=== PATIENT | male | born 1935 | race Caucasian/White ===

== ENCOUNTER → 2016-08-23 | Outpatient (CLI) | payer OTHER ==
[~2016-08-23] MED LIST: GADOBUTROL 10 ML VIAL IVP ONE
[2016-08-23 10:59] LABS: CREATININE 1.2 mg/dL (0.7-1.3)
== END ==
LOC: FIMAGING 09:23
PROVIDERS: ATTEND Internal Medicine
DX: G31.9 Degenerative disease of nervous system, unspecified (principal)
CPT/HCPCS: 70553; A9585

== ENCOUNTER → 2016-09-19 | Outpatient (CLI) | payer OTHER | LOC: BHFA 13:00 | PROVIDERS: ATTEND Internal Medicine | DX: I73.9 Peripheral vascular disease, unspecified (principal) ==

== ENCOUNTER 2016-09-22 06:58 | Observation (INO) | payer OTHER ==
--- NOTE | 2016-09-21 15:46 | GHP ---
[f rep st] PREOP HISTORY AND PHYSICAL DATE OF ADMISSION: 09/22/2016 ADMISSION DIAGNOSIS: Urgency with urinary incontinence and obstruction. HISTORY OF PRESENT ILLNESS: At the present time, he is admitted for a TURP. He had an AUA score up to 26. He has had urodynamics and noted with detrusor instability and obstruction cystoscopy revea led obstruction and we recommended he undergo a TURP. Indications and complications of postoperativ e urge incontinent were discussed. He appears to be well informed and agrees to undergo the above p rocedure. PAST MEDICAL HISTORY: BPH with obstruction, erectile dysfunction, nocturia, and urge incontinence. PAST SURGICAL HISTORY: Melanoma. Pacemaker. MEDICATIONS: Benazepril, levothyroxine. ALLERGIES: None. FAMILY HISTORY: Positive for prostate cancer, hypertension, and heart disease. SOCIAL HISTORY: Moderate alcohol consumption. A nonsmoker. REVIEW OF SYSTEMS: CARDIAC: Negative, other than the pacemaker, but he denies chest pain, shortnes s of breath. ABDOMEN: Normal. No organomegaly, rebound or guarding. HEMATOLOGIC: He does admit to easy bruising, but denies easy bleeding. IMMUNOLOGIC: He denies any hematologic issues. PHYSICAL EXAM: VITAL SIGNS: Stable. CHEST: Clear. HEART: Regular rate and rhythm. ABDOMEN: N ormal. No organomegaly, rebound, or guarding. EXTREMITIES: Lower extremities are normal. ASSESSMENT AND PLAN: At the present time, he is admitted for the transurethral resection of prostat e. Indications, complications, and expectations discussed, and a written and verbal consent was the n obtained. /[id number]/MODL
--- NOTE | 2016-09-22 06:48 | PDHPUP ---
History & Physical Update H&P update statement: This history and physical update is based on an assessment of the patient which was completed after admission or registration (within 24 hours), but prior to the surgery/procedure. H&P update: H&P reviewed & patient examined, no change in patient's condition since H&P completed
[~2016-09-22 06:58] MED LIST changes: -GADOBUTROL 10 ML VIAL IVP ONE; +ceFAZolin 2 GM/DEXTROSE 100 ML IV ONE
[2016-09-22] MEDS ORDERED: LR 1,000 ML IV ONE (07:33)
[2016-09-22] MEDS ORDERED: LIDOCAINE 2% JELLY 20 ML (UROJECT) ONE (08:31)
--- NOTE | 2016-09-22 08:39 | PDANEPAE ---
ANE History of Present Illness PRESENTS FOR TURP ANE Past Medical History - Cardiovascular History Hx Hypertension: No Hx Arrhythmias: Yes Hx Chest Pain: No Hx Coronary Artery / Peripheral Vascular Disease: Yes Hx CHF / Valvular Disease: No Hx Palpitations: No Cardiovascular History Comment: pacemaker - Pulmonary History Hx COPD: No Hx Asthma/Reactive Airway Disease: No Hx Recent Upper Respiratory Infection: No Hx Oxygen in Use at Home: No Hx Sleep Apnea: Yes Sleep Apnea Screening Result - Last Documented: Positive - Neurologic History Hx Cerebrovascular Accident: No Hx Seizures: No Hx Dementia: No - Endocrine History Hx Diabetes: No Endocrine History Comment: hypothyroid - Renal History Hx Renal Disorders: Yes Renal History Comment: urinary frequency, retention - Liver History Hx Hepatic Disorders: No - Neurological & Psychiatric Hx Hx Neurological and Psychiatric Disorders: Yes Neurological / Psychiatric History Comment: "back always hurts" in a.m. until pt stretches. - Cancer History Hx Cancer: Yes Cancer History Comment: skin - Congenital Disorder History Hx Congenital Disorders: No - GI History Hx Gastrointestinal Disorders: No - Other Health History Other Health History: "worts L hand"- wants to try dietary supplement. - Chronic Pain History Chronic Pain: No - Surgical History Prior Surgeries: cysto 2009. 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 Patient History - Allergies Allergies/Adverse Reactions: No Known Allergies Allergy (Verified 09/21/16 10:51) - Home Medications Home Medications: Aspirin [Aspirin 81mg (*)] 81 mg PO DAILY 04/15/15 [Last Taken 08/24/16] Levothyroxine [Synthroid 112 mcg (*)] 112 mcg PO DAILY@0300 09/01/16 [Last Taken 09/22/16 03:00] Melatonin [Melatonin 5 mg] 5 mg PO HS PRN 09/01/16 [Last Taken 09/08/16 23:00] Travoprost Z 0.004% [Travatan Z 0.004% (*)] 1 drops LEFTEYE HS 09/01/16 [Last Taken 09/21/16 23:00] - NPO status NPO Since - Liquids (Date): 09/22/16 NPO Since - Liquids (Time): 06:00 NPO Since - Solids (Date): 09/21/16 NPO Since - Solids (Time): 23:00 - Anes Hx Anes Hx: no prior problems - Smoking Hx Smoking Status: Never smoked ANE Labs/Vital Signs - Vital Signs Blood Pressure: 131/87 Heart Rate: 82 Respiratory Rate: 15 O2 Sat (%): 96 Height: 172.72 cm Weight: 77.111 kg ANE Physical Exam - Airway Neck exam: FROM Mallampati Score: Class 1 Mouth exam: normal dental/mouth exam - Pulmonary Pulmonary: no respiratory distress - Cardiovascular Cardiovascular: regular rate and rhythym - ASA Status ASA Status: III ANE Anesthesia Plan Anesthesia Plan: general endotracheal anesthesia
[2016-09-22] MEDS ORDERED: MIDAZOLAM 2 MG/2 ML VIAL IVP ONE (08:42)
[2016-09-22] MEDS ORDERED: PROPOFOL 200 MG/20 ML VIAL ONE (08:50)
[2016-09-22] MEDS ORDERED: fentaNYL 100 MCG/2 ML INJ ONE ×2 (08:50→09:39)
[2016-09-22] MEDS ORDERED: DEXAMETHASONE 4 MG/ML VIAL ONE (09:21)
[2016-09-22] MEDS ORDERED: PROMETHAZINE HCL 25 MG/ML INJ IVP PRN (09:56)
[2016-09-22] MEDS ORDERED: HYDROmorphONE/DILAUDID 1 MG/ML SYR IVP PRN (09:56)
[2016-09-22] MEDS ORDERED: OXYCODONE/APAP 5/325 TAB PO PRN (09:56)
[2016-09-22] MEDS ORDERED: NALOXONE HCL 0.4 MG/ML INJ IVP PRN (09:56)
[2016-09-22] MEDS ORDERED: ONDANSETRON 4 MG/2 ML VIAL IVP PRN ×2 (09:56→14:46)
[2016-09-22] MEDS ORDERED: fentaNYL 100 MCG/2 ML INJ IVP PRN (09:56)
--- NOTE | 2016-09-22 10:14 | GOP ---
[f rep st] OPERATIVE REPORT DATE OF OPERATION: 09/22/2016 SURGEON: Danny Guthrie MD RACING MECHANIC: None. PREOPERATIVE DIAGNOSIS: Benign prostatic hypertrophy, urinary obstruction, hyperactive bladder with urge/frequency syndrome. POSTOPERATIVE DIAGNOSIS: Benign prostatic hypertrophy, urinary obstruction, hyperactive bladder wit h urge/frequency syndrome. PROCEDURE PERFORMED: Transurethral excision of the prostate. FINDINGS: DESCRIPTION OF PROCEDURE: After appropriate time-out and general anesthesia, was prepped and draped in the normal sterile fashion in the dorsal lithotomy position. TUR was begun, taking down the int ravesical lobe, the right lateral lobe, and the right portion of the posterior lobe. Left lateral l obe was handled in the same fashion. I really did more of a posterior channel TURP and left the lat eral anterior tissue in place because of his urgency and urge incontinence, trying not to exacerbate that. We did discuss this preoperatively. He was well informed that he does have the dysfunctiona l bladder. At the end of the procedure, bladder was Ellik'd free of all chips and clots. Visualiza tion revealed no residual chips or clots. The ureteral orifices were preserved. External sphincter approximated at the midline symmetrically. 22 three-way catheter passed, Mandarin guide placed, an d the balloon inflated, and irrigated clear. Specimen sent to pathology. He will be admitted for p ostoperative care. /[id number]/MODL
--- NOTE | 2016-09-22 10:16 | POSTANESTH ---
Post Anesthetic Evaluation Cardiovascular Status: Normal, Stable Respiratory Status: Normal, Stable Level of Consciousness/Mental Status: Can Participate in Eval Pain Control: Adequate, Prn Tx Ordered Nausea/Vomiting Control: Adequate, Prn Tx Ordered Complications Possibly Related to Anesthesia: None Noted
[2016-09-22 12:16] VITALS: RESP 16
[2016-09-22] MEDS ORDERED: OPIUM/BELLADONNA ALKALO SUPP PR PRN (14:46)
[2016-09-22] MEDS ORDERED: ONDANSETRON DISINTEGRATING 4 MG TAB PO PRN (14:46)
[2016-09-22] MEDS ORDERED: ACETAMINOPHEN 325 MG TAB PO PRN (14:46)
[2016-09-22] MEDS ORDERED: HYDROCODONE/APAP 5/325 TAB PO PRN (14:46)
[2016-09-22] MEDS ORDERED: NON-FORMULARY NEW DRUG (Melatonin [Melatonin 5 Mg] 5 MG) PO PRN (14:49)
[2016-09-22] MEDS ORDERED: D5W LR 1,000 ML IV SCH (15:00)
[2016-09-22] MEDS ORDERED: MELATONIN 3 MG TAB PO PRN (15:08)
[2016-09-22] MEDS ORDERED: TRAVOPROST Z 0.004% 2.5 ML OPHT.BTL LEFTEYE SCH (21:00)
[2016-09-23] MEDS ORDERED: LEVOTHYROXINE 112 MCG TAB PO SCH (03:00)
[2016-09-23 07:17] VITALS: BP 120/70; PULSE 77; TEMP 97.7; O2SAT 94
[2016-09-23] MEDS ORDERED: ASPIRIN 81 MG CHEWABLE TAB PO SCH (09:00)
== END 2016-09-23 12:03 | disposition home or self-care (01) ==
LOC: INTOOBSV 06:58 → F1N 06:58
PROVIDERS: ADMIT Specialist; ATTEND Specialist
PROC: 0VT08ZZ Resection of Prostate, Via Natural or Artificial Opening Endoscopic (ICD-10-PCS; principal; 2016-09-22 08:30)
DX: N40.1 Benign prostatic hyperplasia with lower urinary tract symptoms (principal); R33.9 Retention of urine, unspecified; R32 Unspecified urinary incontinence; Z95.5 Presence of coronary angioplasty implant and graft; Z85.820 Personal history of malignant melanoma of skin
CPT/HCPCS: 52601; 88307; J0690; J1100; J2250; J2405; J2704; J3010

== ENCOUNTER 2016-09-25 13:53 | Emergency (ER) | payer OTHER ==
[2016-09-25] MEDS ORDERED: ONDANSETRON 4 MG/2 ML VIAL IVP ONE (14:21)
--- NOTE | 2016-09-25 14:21 | EDPHY ---
HPI/HX/ROS/PE/MDM Narrative: CHIEF COMPLAINT: Nausea, abdominal pain. HISTORY OF PRESENT ILLNESS: This patient is an 81 year old male arriving with his complaining of nausea and right sided abdominal pain onset earlier today. He reports he had a TURP done 09/19/[address] Guthrie, one week ago. He states he has been generally feeling well following the procedure. Today, a few hours after breakfast, he states he had a sudden urge to have a bowel movement with associated nausea. He states he subsequently induced three episodes of vomiting to relieve his nausea. He endorses hematuria and urinary frequency, but denies clotting or sensations of urinary retention. He states his bowel movements have been small and soft since before his TURP. He states he is not currently taking antibiotics. No fever, chills, chest pain, shortness of breath, palpitations, vomiting, diarrhea, headache, lightheadedness. REVIEW OF SYSTEMS: Aside from elements discussed in the HPI, a comprehensive 10-point review of systems was reviewed and is negative. PAST MEDICAL HISTORY: Hypothyroid (Levothyroxine), atrial fibrillation ( pacemaker), appendectomy. SOCIAL HISTORY: . at bedside. Urologist Dr. [place] Guthrie PHYSICAL EXAM: VITAL SIGNS: Reviewed by me GENERAL: Pleasant, elderly, resting comfortably in no respiratory distress. HEENT: Atraumatic. Eyes: No icterus, no injection. Mouth: moist mucous membranes. No erythema or lesions. Neck: supple with no adenopathy. LUNGS: Clear to auscultation bilaterally, no wheezes, rhonchi or rales. CARDIAC: Regular rate and rhythm, no rubs, murmurs or gallops. ABDOMEN: RLQ tenderness. Hyperactive bowel sounds. Soft, nondistended. No guarding or rebound. BACK: No flank pain. No CVA tenderness. EXTREMITIES: Trace lower leg edema bilaterally. No trauma. Range of motion is normal throughout. NEURO: Alert and oriented, grossly nonfocal. SKIN: Warm and dry, no rash. PSYCHIATRIC: Normal mentation, no agitation. Portions of this note were transcribed by a paramedical aide. I personally performed a history, physical exam, medical decision making, and confirmed accuracy of information the transcribed note. ED Course: This patient is an 81 year old male post op day 6 from TURP presenting with nausea and abdominal pain. Physical exam reveals right lower quadrant tenderness and hyperactive bowel sounds. No flank pain. The patient is afebrile. Plan for labs including CBC, liver/lipase, UA. Plan for bladder scan following void and for CT abdomen and pelvis to assess for acute processes. Administered 4mg IV Zofran for relief of nausea. Labs unremarkable. CT pending. 16:[address] Brid, radiologist. CT shows mild constipation, as well as significant dilatation of the right collecting system with hydroureter and hydronephrosis. Patient does have a kidney stone in the right ureter, distally , but does not appear to be obstructing source. There is also a nodular structure, questionable soft tissue swelling, near the ureter which may be the source of obstruction. Spoke with Dr. Foss, urologist, on-call for Dr. Guthrie. Plans start the patient on Keflex for slightly infected looking urine, and follow-up tomorrow Patient will be discharged home in good condition with prescription for Keflex and instruction to follow up with Dr. Guthrie tomorrow. Return precautions discussed. The patient is comfortable with this plan. MDM: Differential diagnoses for the patient's symptom complex was considered including but not limited to appendicitis, bowel obstruction, constipation, kidney stone, abscess. - Data Points Imaging Results: Imaging Impressions Abdomen CT 09/25/16 14:21 Impression: 1. Mild dilatation of the distal right ureter containing a nonobstructive dependent 7 mm calculus near the ureterovesical junction. Query stenosis at the ureterovesical junction versus reflux uropathy. 2. Constipation. No obstruction or adynamic ileus. 3. No free fluid, abscess, or localized inflammatory process. Findings discussed with emergency department physician, Mary Mason MD on September 25, 2016 at 4:03 p.m. Imaging: Discussed imaging studies w/ home sales consultant Radiologist Laboratory Results: Laboratory Results 09/25/16 14:40 09/25/16 14:40 09/25/16 09/25/16 09/25/16 14:40 14:40 14:30 WBC 10.37 10^3/uL H 10^3/uL (3.80-9.50) RBC 3.82 10^6/uL L 10^6/uL (4.40-6.38) Hgb 12.8 g/dL L g/dL (13.7-17.5) Hct 38.2 % L % (40.0-51.0) MCV 100.0 fL H fL (81.5-99.8) MCH 33.5 pg pg (27.9-34.1) MCHC 33.5 g/dL g/dL (32.4-36.7) RDW 13.9 % % (11.5-15.2) Plt Count 161 10^3/uL 10^3/uL (150-400) MPV 12.0 fL H fL (8.7-11.7) Neut % (Auto) 80.1 % H % (39.3-74.2) Lymph % (Auto) 9.6 % L % (15.0-45.0) [place] % (Auto) 7.5 % % (4.5-13.0) Eos % (Auto) 1.4 % % (0.6-7.6) Baso % (Auto) 0.5 % % (0.3-1.7) Nucleat RBC Rel Count 0.0 % % (0.0-0.2) Absolute Neuts (auto) 8.31 10^3/uL H 10^3/uL (1.70-6.50) Absolute Lymphs (auto) 1.00 10^3/uL 10^3/uL (1.00-3.00) Absolute Monos (auto) 0.78 10^3/uL 10^3/uL (0.30-0.80) Absolute Eos (auto) 0.14 10^3/uL 10^3/uL (0.03-0.40) Absolute Basos (auto) 0.05 10^3/uL 10^3/uL (0.02-0.10) Absolute Nucleated RBC 0.00 10^3/uL 10^3/uL (0-0.01) Immature Gran % 0.9 % % (0.0-1.1) Immature Gran # 0.09 10^3/uL 10^3/uL (0.00-0.10) Sodium 138 mEq/L mEq/L (134-144) Potassium 4.2 mEq/L mEq/L (3.5-5.2) Chloride 102 mEq/L mEq/L (97-110) Carbon Dioxide 25 mEq/l mEq/l (22-31) Anion Gap 11 mEq/L mEq/L (8-16) BUN 27 mg/dL H mg/dL (7-23) Creatinine 1.2 mg/dL mg/dL (0.7-1.3) Estimated GFR 58 Glucose 106 mg/dL H mg/dL (70-100) Calcium 10.4 mg/dL mg/dL (8.5-10.4) Total Bilirubin 0.9 mg/dL mg/dL (0.1-1.4) Conjugated Bilirubin 0.4 mg/dL mg/dL (0.0-0.5) Unconjugated Bilirubin 0.5 mg/dL mg/dL (0.0-1.1) AST 30 IU/L IU/L (17-59) ALT 43 IU/L IU/L (21-72) Alkaline Phosphatase 43 IU/L IU/L (38-126) Total Protein 6.9 g/dL g/dL (6.3-8.2) Albumin 4.2 g/dL g/dL (3.5-5.0) Lipase 63.0 IU/L IU/L (23-300) Urine Color YELLOW Urine Appearance HAZY Urine pH 6.0 (5.0-7.5) Ur Specific [place] 1.012 (1.002-1.030) Urine Protein 2+ H (NEGATIVE) Urine Ketones NEGATIVE (NEGATIVE) Urine Blood 3+ H (NEGATIVE) Urine Nitrate NEGATIVE (NEGATIVE) Urine Bilirubin NEGATIVE (NEGATIVE) Urine Urobilinogen NEGATIVE EU EU (0.2-1.0) Ur Leukocyte Esterase 1+ H (NEGATIVE) Urine RBC 50-182 /hpf H /hpf (0-3) Urine WBC 25-50 /hpf H /hpf (0-3) Ur Epithelial Cells NONE SEEN /lpf /lpf (NONE-1+) Urine Bacteria TRACE /hpf H /hpf (NONE SEEN) Urine Mucus TRACE /lpf /lpf (NONE-1+) Urine Glucose NEGATIVE (NEGATIVE) Medications Given: Discontinued Medications Cephalexin HCl (Keflex) 500 mg PO EDNOW ONE PRN Reason: Protocol Stop: 09/25/16 16:26 Last Admin: 09/25/16 16:40 Dose: 500 mg Sodium Chloride (Ns) 500 mls @ 1,000 mls/hr IV ONCE ONE PRN Reason: Protocol Stop: 09/25/16 15:20 Last Admin: 09/25/16 15:00 Dose: 500 mls Ondansetron HCl (Zofran) 4 mg IVP EDNOW ONE Stop: 09/25/16 14:22 Last Admin: 09/25/16 14:45 Dose: 4 mg General Time Seen by Provider: 09/25/16 14:05 Initial Vital Signs: Initial Vital Signs Temperature (C) 36.9 C 09/25/16 13:53 Heart Rate 83 09/25/16 13:53 Respiratory Rate 18 09/25/16 13:53 Blood Pressure 168/94 H 09/25/16 13:53 O2 Sat (%) 95 09/25/16 13:53 O2 Delivery Mode Room Air Allergies/Adverse Reactions: No Known Allergies Allergy (Verified 09/21/16 10:51) Home Medications: Medication Instructions Recorded Aspirin [Aspirin 81mg (*)] 81 mg PO DAILY 04/15/15 Levothyroxine [Synthroid 112 mcg 112 mcg PO DAILY@0300 09/01/16 (*)] Melatonin [Melatonin 5 mg] 5 mg PO HS PRN 09/01/16 Travoprost Z 0.004% [Travatan Z 1 drops LEFTEYE HS 09/01/16 0.004% (*)] Cephalexin [Keflex (RX)] 500 mg PO TID 7 Days 09/25/16 Departure - Departure Disposition: Home, Routine, Self-Care Clinical Impression: Vomiting alone Qualifiers: Vomiting type: unspecified Vomiting Intractability: non-intractable Qualified Code(s): R11.11 - Vomiting without nausea Constipation Qualifiers: Constipation type: unspecified constipation type Qualified Code(s): K59.00 - Constipation, unspecified Abdominal pain Qualifiers: Abdominal location: right lower quadrant Qualified Code(s): R10.31 - Right lower quadrant pain Hydronephrosis Qualifiers: Hydronephrosis type: unspecified Qualified Code(s): N13.30 - Unspecified hydronephrosis Condition: Good Instructions: Constipation (ED), Acute Nausea and Vomiting (ED), Abdominal Pain (ED), Hydronephrosis (ED) Additional Instructions: You do have some signs of constipation on your CT scan and we would like to encourage you to drink plenty of fluid. You been given antibiotics to cover for any possible urinary tract infection. Please take this as directed. Keflex 500 mg by mouth 3 times a day. Please follow up tomorrow with Dr. Guthire, at least by phone. Referrals: Ephraim Tatum MD [Primary Care Provider] - As per Instructions Danny Guthrie MD [Medical Doctor] - As per Instructions Prescriptions: Cephalexin [Keflex (RX)] 500 mg PO TID 7 Days Report Scribed for: Mary Mason Report Scribed by: Rosita Luther Date of Report: 09/25/16 Time of Report: 14:09
--- NOTE | 2016-09-25 14:25 | CPEKG ---
Heart Rate: 81 RR Interval: 741 P-R Interval: 170 QRSD Interval: 176 QT Interval: 440 QTC Interval: 511 P [place]: 0 QRS [place]: -74 T Wave [place]: 98 EKG Severity - ABNORMAL ECG - EKG Impression: VENTRICULAR-PACED COMPLEXES EKG Impression: NONSPECIFIC IVCD WITH LAD EKG Impression: LVH WITH SECONDARY REPOLARIZATION ABNORMALITY Electronically Signed By: Mary Mason 25-Sep-2016 21:28:06
[2016-09-25] MEDS ORDERED: NS 500 ML IV ONE (14:51)
[2016-09-25 15:03] LABS: % IMMATURE GRANULYOCYTES 0.9 % (0.0-1.1); ABSOLUTE IMMATURE GRANULOCYTES 0.09 10^3/uL (0.00-0.10); ADD DIFF? NO; ADD MORPH? NO; ADD SCAN? NO; ATYPICAL LYMPHOCYTE FLAG 0 (0-99); FRAGMENT RBC FLAG 0 (0-99); HEMATOCRIT 38.2 % (40.0-51.0); HEMOGLOBIN 12.8 g/dL (13.7-17.5); LEFT SHIFT FLG 20 (0-99); LIPEMIA HEMOLYSIS FLAG 80 (0-99); MEAN CELL HEMOGLOBIN 33.5 pg (27.9-34.1); MEAN CELL HEMOGLOBIN CONCENTR. 33.5 g/dL (32.4-36.7); PLATELET CLUMPS FLAG 0 (0-99); PLATELET COUNT 161 10^3/uL (150-400); RED BLOOD CELL COUNT 3.82 10^6/uL (4.40-6.38); RED CELL DISTRIBUTION WIDTH 13.9 % (11.5-15.2)
[2016-09-25] MEDS ORDERED: IOPAMIDOL (ISOVUE-300) 100 ML BTL ONE (15:07)
[2016-09-25 15:08] LABS: ALANINE AMINOTRANSFERASE 43 IU/L (21-72); ALBUMIN 4.2 g/dL (3.5-5.0); ALKALINE PHOSPHATASE 43 IU/L (38-126); ANION GAP 11 mEq/L (8-16); ASPARTATE AMINOTRANSFERASE 30 IU/L (17-59); BILIRUBIN,TOTAL 0.9 mg/dL (0.1-1.4); BILIRUBIN-CONJUGATED 0.4 mg/dL (0.0-0.5); BILIRUBIN-UNCONJUGATED 0.5 mg/dL (0.0-1.1); CALCIUM 10.4 mg/dL (8.5-10.4); CARBON DIOXIDE 25 mEq/l (22-31); CHLORIDE 102 mEq/L (97-110); CREATININE 1.2 mg/dL (0.7-1.3); GLOMERULAR FILTRATION RATE 58; GLUCOSE 106 mg/dL (70-100); POTASSIUM 4.2 mEq/L (3.5-5.2); SODIUM 138 mEq/L (134-144); TOTAL PROTEIN 6.9 g/dL (6.3-8.2)
[2016-09-25 15:09] LABS: COLOR YELLOW; LEUKOCYTE ESTERASE,URINE 1+ (NEGATIVE); NITRITE,URINE NEGATIVE (NEGATIVE)
[2016-09-25 15:18] LABS: BACTERIA TRACE /hpf (NONE SEEN); MUCUS TRACE /lpf (NONE-1+); RBC,URINE 50-182 /hpf (0-3); WBC,URINE 25-50 /hpf (0-3)
[2016-09-25] MEDS ORDERED: CEPHALEXIN 500 MG CAP PO ONE (16:25)
[2016-09-25 16:56] VITALS: BP 143/79; PULSE 84; RESP 20; TEMP 98.1; O2SAT 98
== END 2016-09-25 16:55 | disposition home or self-care (01) ==
DX: N13.30 Unspecified hydronephrosis (principal); K59.00 Constipation, unspecified; E86.9 Volume depletion, unspecified; Z79.82 Long term (current) use of aspirin; Z95.0 Presence of cardiac pacemaker
CPT/HCPCS: 74177; 93005; 96374; 99285; J2405; Q9967

== ENCOUNTER 2016-10-06 05:52 | Day surgery (SDC) | payer OTHER ==
--- NOTE | 2016-10-05 15:14 | GHP ---
[f rep st] PREOP HISTORY AND PHYSICAL ADMISSION DIAGNOSIS: Right ureteral calculus. HISTORY OF PRESENT ILLNESS: This is a gentleman, who has had a recent TUR of the prostate and then he developed right flank pain. The CAT scan revealed a right 7 mm distal ureteral calculus with hydronephrosis and dilated ureter. He was admitted for ureteroscopy and removal of the stone. PAST SURGICAL HISTORY: TURP, pacemaker, and melanoma excision. PAST MEDICAL HISTORY: Urge incontinence, nocturia, erectile dysfunction, BPH treated with a TURP. MEDICATIONS: Donepezil and levothyroxine. ALLERGIES: None. FAMILY HISTORY: Prostate cancer, hypertension, heart disease. SOCIAL HISTORY: Mild alcohol consumption and nonsmoker. REVIEW OF SYSTEMS: Negative cardiac, respiratory, GI, endocrine. PHYSICAL EXAMINATION: VITAL SIGNS: Stable. CHEST: Clear. HEART: Regular rate and rhythm. ABDOMEN: Normal. No organomegaly, rebound, or guarding. EXTREMITIES: Lower extremities normal. PLAN: He is presently admitted for a right ureteroscopy. Copy requested to: Dr. Tatum /[id number]/MODL MTDD
[2016-10-06] MEDS ORDERED: LIDOCAINE 1% 2 ML INJ ONE (06:10)
[2016-10-06] MEDS ORDERED: LR 1,000 ML IV ONE (06:17)
[2016-10-06] MEDS ORDERED: LIDOCAINE 1% 2 ML INJ ID PRN (06:17)
--- NOTE | 2016-10-06 06:52 | PDANEPAE ---
ANE History of Present Illness ureterolithiasis ANE Past Medical History - Cardiovascular History Hx Hypertension: No Hx Arrhythmias: Yes Hx Chest Pain: No Hx Coronary Artery / Peripheral Vascular Disease: Yes Hx CHF / Valvular Disease: No Hx Palpitations: No Cardiovascular History Comment: pacemaker - Pulmonary History Hx COPD: No Hx Asthma/Reactive Airway Disease: No Hx Recent Upper Respiratory Infection: No Hx Oxygen in Use at Home: No Hx Sleep Apnea: Yes Sleep Apnea Screening Result - Last Documented: Positive - Neurologic History Hx Cerebrovascular Accident: No Hx Seizures: No Hx Dementia: No Neurologic History Comment: PT STATED "I HAVE LOUSY MEMORY. IT COULD BE DEMENTIA BUT THEY HAVEN'T DETERMINED THAT. I'M GETTING A NEW DOCTOR." - Endocrine History Hx Diabetes: No Hypothyroid: Yes Hyperthyroid: No Obesity: no Endocrine History Comment: hypothyroid - Renal History Hx Renal Disorders: Yes Renal History Comment: urinary frequency, retention, ureterolithiasis - Liver History Hx Hepatic Disorders: No - Neurological & Psychiatric Hx Hx Neurological and Psychiatric Disorders: Yes Neurological / Psychiatric History Comment: "back always hurts" in a.m. until pt stretches. - Cancer History Hx Cancer: Yes Cancer History Comment: skin. MELENOMA - Congenital Disorder History Hx Congenital Disorders: No - GI History GERD: no Hx Gastrointestinal Disorders: No - Other Health History Other Health History: "worts L hand"- wants to try dietary supplement. - Chronic Pain History Chronic Pain: No - Surgical History Prior Surgeries: cysto 2009. 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 Pacemaker Last Checked: 08/10 ANE Patient History - Allergies Allergies/Adverse Reactions: No Known Allergies Allergy (Verified 09/21/16 10:51) - Home Medications Home Medications: Aspirin [Aspirin 81mg (*)] 81 mg PO DAILY 04/15/15 [Last Taken 10/04/16] Levothyroxine [Synthroid 112 mcg (*)] 112 mcg PO DAILY@0300 09/01/16 [Last Taken 10/06/16] Melatonin [Melatonin 5 mg] 5 mg PO HS PRN 09/01/16 [Last Taken 09/21/16] Travoprost Z 0.004% [Travatan Z 0.004% (*)] 1 drops LEFTEYE HS 09/01/16 [Last Taken 10/05/16] Vitamin B12 10/04/16 [Last Taken 10/04/16] - NPO status NPO Since - Liquids (Date): 10/05/16 NPO Since - Liquids (Time): 22:00 NPO Since - Solids (Date): 10/05/16 NPO Since - Solids (Time): 20:00 - Anes Hx Anes Hx: no prior problems - Smoking Hx Smoking Status: Never smoked - Family Anes Hx Family Anes Hx: none Family Hx Anesthesia Complications: N/a ANE Labs/Vital Signs - Vital Signs Blood Pressure: 125/77 Heart Rate: 75 Respiratory Rate: 18 O2 Sat (%): 97 Height: 172.72 cm Weight: 79.379 kg ANE Physical Exam - Airway Neck exam: FROM Mallampati Score: Class 1 Mouth exam: normal dental/mouth exam - Pulmonary Pulmonary: no respiratory distress, no rales or rhonchi, clear to auscultation - Cardiovascular Cardiovascular: regular rate and rhythym - ASA Status ASA Status: II ANE Anesthesia Plan Anesthesia Plan: GA w LMA
[2016-10-06] MEDS ORDERED: LIDOCAINE 2% JELLY 20 ML (UROJECT) ONE (07:05)
[2016-10-06] MEDS ORDERED: IOTHALAMATE MEG (CONRAY) 50 ML VIAL IV ONE (07:09)
[2016-10-06] MEDS ORDERED: fentaNYL 100 MCG/2 ML INJ ONE ×2 (07:09)
[2016-10-06] MEDS ORDERED: PROPOFOL 200 MG/20 ML VIAL ONE (07:09)
[2016-10-06] MEDS ORDERED: IOPAMIDOL (ISOVUE-M 300) 15 ML VIAL ONE (07:10)
[2016-10-06] MEDS ORDERED: LIDOCAINE 2% 5 ML SDV ONE (07:10)
[2016-10-06] MEDS ORDERED: KETOROLAC 30 MG/1 ML SDV ONE (07:12)
[2016-10-06] MEDS ORDERED: DEXAMETHASONE 4 MG/ML VIAL ONE (07:12)
[2016-10-06] MEDS ORDERED: ONDANSETRON 4 MG/2 ML VIAL ONE (07:12)
[2016-10-06] MEDS ORDERED: ceFAZolin 2 GM/DEXTROSE 100 ML IV ONE (07:20)
[2016-10-06] MEDS ORDERED: LR 500 ML IV PRN (08:02)
[2016-10-06] MEDS ORDERED: OXYCODONE/APAP 5/325 TAB PO PRN (08:02)
[2016-10-06] MEDS ORDERED: fentaNYL 100 MCG/2 ML INJ IVP PRN (08:02)
[2016-10-06] MEDS ORDERED: HYDROCODONE/APAP 5/325 TAB PO PRN (08:02)
[2016-10-06] MEDS ORDERED: NALOXONE HCL 0.4 MG/ML INJ IVP PRN (08:02)
[2016-10-06] MEDS ORDERED: PROMETHAZINE HCL 25 MG/ML INJ IVP PRN (08:02)
[2016-10-06] MEDS ORDERED: ACETAMINOPHEN 500 MG TAB PO PRN (08:02)
[2016-10-06] MEDS ORDERED: ONDANSETRON 4 MG/2 ML VIAL IVP PRN (08:02)
--- NOTE | 2016-10-06 08:36 | POSTOPPROG ---
Post Op Note Date of Operation: 10/06/16 Surgeon: Danny Guthrie Fraud Representative: ruperto Anesthesiologist: ruperto Anesthesia: LMA Pre-op Diagnosis: rt stone Post-op Diagnosis: same Indication: same Procedure: ureteroscopy / stent----dictated Findings: stone Inf/Abcess present in the surg proc area at time of surgery?: No EBL: Minimal Complications: none Drains: Other (stent, michael)
--- NOTE | 2016-10-06 10:31 | POSTANESTH ---
Post Anesthetic Evaluation Cardiovascular Status: Normal, Stable, Similar to Pre-Op Cond, Other, See Comment (paced rhythm) Respiratory Status: Normal, Stable Level of Consciousness/Mental Status: Can Participate in Eval Pain Control: Adequate, Prn Tx Ordered Nausea/Vomiting Control: Adequate, Prn Tx Ordered Complications Possibly Related to Anesthesia: None Noted
[2016-10-06 13:47] VITALS: RESP 16; O2SAT 96
[2016-10-06 13:55] VITALS: BP 142/86; PULSE 74; TEMP 97.7
--- NOTE | 2016-10-06 17:02 | GOP ---
[f rep st] OPERATIVE REPORT DATE OF OPERATION: 10/06/2016 SURGEON: Danny Guthrie MD ANESTHESIA: General. ANESTHESIOLOGIST: Arden Randle DO PREOPERATIVE DIAGNOSIS: Right ureteral calculus with obstruction. POSTOPERATIVE DIAGNOSIS: Right ureteral calculus with obstruction. PROCEDURE PERFORMED: 1. Cystoscopy and retrograde ureteral pyelogram. 2. Dilation of the ureter. 3. Holmium laser lithotripsy of stone fragment, extraction of the stone, and placement of the multi -length stent under fluoroscopic control. FINDINGS: DESCRIPTION OF PROCEDURE: After undergoing general anesthesia, an appropriate time-out, and being p repped and draped in normal sterile fashion, cystoscope was passed. He had a previous TURP which stanton d the postop inflammatory changes. The right ureteral orifice was edematous, and I could eventually negotiate an angled guidewire beyond the stone. It curled in the renal pelvis and was confirmed in position by retrograde of the renal pelvis. Then, the inner working part of the ureteral access sh eat was passed under fluoroscopic control and then the semi-rigid scope passed up to the stone. Fr agmented it into pieces with 1037 joules of the Holmium laser, mode 8, hernandez 10, x4, fiber 273, teresa tity 1. Laser serial #[id number]. At the end of the procedure, extracted the stone with a stone basket a nd then placed the 4.7 multi-length stent that curled in the renal pelvis and curled in the bladder. Then Uro-Jet placed in the urethra and Hong catheter placed. He will be discharged home to have followup with me in about 1 week for stent removal. His is out of town, so he said there is no one that I should contact for postoperative discussion. He will have an individual with whom he wi ll go home for postop care. /[id number]/MODL
[2016-10-11 18:10] LABS: SOURCE OF STONE R URETER
[2016-10-11 18:12] LABS: NIDUS NOT OBSERVED
== END 2016-10-06 13:45 | disposition home or self-care (01) ==
LOC: FSGY 05:52
PROVIDERS: ATTEND Specialist
DX: N13.2 Hydronephrosis with renal and ureteral calculous obstruction (principal); N40.1 Benign prostatic hyperplasia with lower urinary tract symptoms; R35.1 Nocturia; N39.41 Urge incontinence; Z95.0 Presence of cardiac pacemaker; Z85.820 Personal history of malignant melanoma of skin; Z80.42 Family history of malignant neoplasm of prostate
CPT/HCPCS: 51610; 52356; 76001; C1758; C1769; C1894; 82365-90; C2625; J0690; J1100; J1885; J2405; J2704; J3010; Q9961; Q9967

== ENCOUNTER → 2018-05-09 | Outpatient (CLI) | payer OTHER | LOC: BMCIMAGING 16:55 | PROVIDERS: ATTEND Internal Medicine | DX: M25.711 Osteophyte, right shoulder (principal); M19.011 Primary osteoarthritis, right shoulder ==